=== PATIENT | female | born 1940 | race Caucasian/White ===

== ENCOUNTER → 2017-04-04 | Day surgery (SDC) | payer MEDICARE, OTHER ==
[~2017-04-04] MED LIST: CEFAZOLIN 1 GM INJ; EPHEDrine SULFATE 50 MG/5 ML SYG; FENTAnyl 50 MCG/ML VIAL; GELATIN SIZE 100 SPONGE; HEPARIN 1000 UNITS/ML 10 ML INJ; HYDROmorphONE (0.2 MG/ML) 10ML SYG IV; LIDOCAINE 1% (MPF) 30 ML INJ; MIDAZOLAM 1 MG/ML 2 ML INJ; ONDANSETRON 4 MG INJ IV; OXYCODONE/ACETAMINOPHEN (5/325) TAB PO; PHENYLephrine (100 MCG/ML) 5ML SYG; PROPOFOL 40 ML; ROPIVACAINE 0.2% 20 ML VIAL; THROMBIN 5000 UNIT VIAL
[2017-04-04 09:21] LABS: ANION GAP 18 (8-16); BLOOD UREA NITROGEN 31 mg/dl (7-20); CARBON DIOXIDE 28 mmol/L (21-31); CHLORIDE 99 mmol/L (97-110); CREATININE 2.88 mg/dl (0.44-1.00); GLUCOSE 127 mg/dl (70-220); POTASSIUM 4.6 mmol/L (3.5-5.1); SODIUM 140 mmol/L (135-144)
[2017-04-04] MEDS: THROMBIN 5000 UNIT VIAL (11:41)
[2017-04-04] MEDS: GELATIN SIZE 100 SPONGE (11:41)
[2017-04-04] MEDS: HEPARIN 1000 UNITS/ML 10 ML INJ (11:42)
[2017-04-04] MEDS: LIDOCAINE 1% (MPF) 30 ML INJ (11:43)
[2017-04-04] MEDS: HYDROmorphONE (0.2 MG/ML) 10ML SYG IV ×2 (12:41→12:51)
[2017-04-04] MEDS: OXYCODONE/ACETAMINOPHEN (5/325) TAB PO (13:57)
== END | disposition home or self-care (01) ==
LOC: SDS 07:56
DX: Z45.2 Encounter for adjustment and management of vascular access device (principal); N18.6 End stage renal disease; E11.22 Type 2 diabetes mellitus with diabetic chronic kidney disease; I12.0 Hypertensive chronic kidney disease with stage 5 chronic kidney disease or end stage renal disease
CPT/HCPCS: 36830; 71010; 80048; 82962; 93005